=== PATIENT | female | born 1950 | race Caucasian/White ===

== ENCOUNTER 2019-02-01 09:09 | Inpatient (IN) | payer SELFPAY ==
[~2019-02-01] VITALS: Ht 165.1 cm; Wt 91.0 kg
[2019-02-01] MEDS ORDERED: AMLO2.5T4 PO (09:54)
[2019-02-01] MEDS ORDERED: METO25 PO (09:54)
[2019-02-01] MEDS ORDERED: SODIUM CHLORIDE 0.9% 1,000 ML IV ONE ×3 (10:30→13:30)
[2019-02-01 10:47] LABS: BASOPHILS % (AUTO) 0.1 % (0.0-2.0); EOSINOPHILS % (AUTO) 0.2 % (1.0-6.0); HEMATOCRIT 48.3 % (36-46); HEMOGLOBIN 16.2 g/dL (12.0-16.0); LYMPHOCYTES # (AUTO) 4.2 K/uL (1.0-4.8); LYMPHOCYTES % (AUTO) 18.8 % (22.0-44.0); MEAN CORPUSCULAR HEMOGLOBIN 29.3 pg (26.0-34.0); MEAN CORPUSCULAR HGB CONC 33.4 G/dL (31.0-37.0); MEAN CORPUSCULAR VOLUME 88 fL (80-100); MONOCYTES # (AUTO) 0.6 K/uL (0.1-1.0); MONOCYTES % (AUTO) 2.5 % (2.0-9.0); NEUTROPHILS # (AUTO) 17.7 K/uL (1.8-7.7); NEUTROPHILS % (AUTO) 78.4 % (40.0-70.0); PLATELET COUNT (AUTO) 197 K/uL (150-450); RED BLOOD CELL COUNT(AUTO) 5.51 MIL/uL (4.00-5.20); RED CELL DISTRIBUTION WIDTH 16.1 % (11.5-14.5)
[2019-02-01 11:02] LABS: ALBUMIN 1.9 g/dL (3.4-5.0); BILIRUBIN,TOTAL 0.7 mg/dL (0.1-1.0); CREATININE 1.61 mg/dL (0.60-1.30); TOTAL PROTEIN, SERUM 5.4 g/dL (6.4-8.2)
[2019-02-01 11:58] LABS: APPEARANCE,URINE CLOUDY (CLEAR); GLUCOSE, URINE (UA) NEGATIVE (NEGATIVE); KETONES,URINE TRACE mg/dL (NEGATIVE); LEUKOCYTE ESTERASE ,URINE TRACE (NEGATIVE); NITRATE,URINE NEGATIVE (NEGATIVE); OCCULT BLOOD,URINE NEGATIVE (NEGATIVE); PH,URINE 5.5 (5.0-8.0); PROTEIN,URINE SEE CONFIRM (NEGATIVE); UROBILINOGEN,URINE 0.2 mg/dL (<=1.0)
[2019-02-01] MEDS ORDERED: METO50 PO (12:00)
[2019-02-01] MEDS ORDERED: AMLO-511 PO ×2 (12:00)
[2019-02-01] MEDS ORDERED: FLUC100T PO (12:00)
[2019-02-01] MEDS ORDERED: PRED15SO12 PO (12:00)
[2019-02-01] MEDS ORDERED: [UNRECOGNIZED DRUG - OTHER] PO (12:00)
[2019-02-01] MEDS ORDERED: SPIR25 PO (12:00)
[2019-02-01] MEDS ORDERED: LACT1CAP90 PO (12:00)
[2019-02-01] MEDS ORDERED: [UNRECOGNIZED DRUG - OTHER] PO (12:00)
[2019-02-01] MEDS ORDERED: LOPE1LIQ88 PO (12:00)
[2019-02-01] MEDS ORDERED: PANT40TA25 PO (12:00)
[2019-02-01] MEDS ORDERED: PIPERACILLIN/TAZO 3.375 GM/D5W 50 ML IV ONE (12:30)
[2019-02-01 12:33] LABS: BILIRUBIN,URINE PRELIM. POSITIVE (NEGATIVE); SULFOSALICYLIC ACID,URINE 2+ (Negative)
[2019-02-01 12:34] LABS: AMORPHOUS SEDIMENT,UR Moderate /LPF (None Seen); BACTERIA,URINE None Seen /HPF (None Seen); RBC,URINE None Seen /HPF (0-2); WBC,URINE 0-2 /HPF (0-5)
[2019-02-01] MEDS ORDERED: ONDANSETRON HCL 4 MG/2 ML VIAL IVP PRN (13:30)
[2019-02-01] MEDS ORDERED: ACETAMINOPHEN 325 MG TABLET PO PRN (13:30)
[2019-02-01] MEDS: SODIUM CHLORIDE 0.9% 1,000 ML IV SCH (14:03)
[2019-02-01] MEDS: PredniSONE 10 MG TABLET PO SCH (14:30)
[2019-02-01] MEDS: ACETAMINOPHEN 325 MG TABLET PO PRN (18:01)
[2019-02-01] MEDS: HEPARIN SODIUM,PORCINE 5,000 UNITS/ML VIAL SQ SCH (21:00)
[2019-02-01] MEDS: DOCUSATE SODIUM 100 MG CAPSULE PO SCH (21:00)
[2019-02-01] MEDS: PIPERACILLIN SODIUM/TAZOBACTAM 2.25 GM in DEXTROSE 5%-WATER 50 ML IV SCH (21:23)
[2019-02-02 00:26] VITALS: BP 114/77
[2019-02-02 00:30] LABS: GLUCOMETER DEV NAME(LOC) 5S.1; GLUCOSE,POINT OF CARE 374 MG/DL (70-110)
[2019-02-02] MEDS: PIPERACILLIN SODIUM/TAZOBACTAM 2.25 GM in DEXTROSE 5%-WATER 50 ML IV SCH ×4 (01:41→20:53)
[2019-02-02 05:38] VITALS: BP 104/70
[2019-02-02] MEDS ORDERED: PNEUMOCOCCAL VACCINE POLYVALENT 0.5 ML VIAL [PPSV23] IM ONE (06:00)
[2019-02-02 06:21] LABS: CALCIUM, TOTAL 8.1 mg/dL (8.8-10.5); CREATININE 1.74 mg/dL (0.60-1.30)
[2019-02-02] MEDS: SODIUM CHLORIDE 0.9% 1,000 ML IV SCH (06:48)
[2019-02-02 07:38] VITALS: BP 115/70
[2019-02-02 07:55] LABS: BASOPHILS % (AUTO) 0.2 % (0.0-2.0); EOSINOPHILS % (AUTO) 0.2 % (1.0-6.0); HEMATOCRIT 48.5 % (36-46); HEMOGLOBIN 16.1 g/dL (12.0-16.0); LYMPHOCYTES # (AUTO) 3.6 K/uL (1.0-4.8); LYMPHOCYTES % (AUTO) 13.3 % (22.0-44.0); MEAN CORPUSCULAR HEMOGLOBIN 29.1 pg (26.0-34.0); MEAN CORPUSCULAR HGB CONC 33.1 G/dL (31.0-37.0); MEAN CORPUSCULAR VOLUME 88 fL (80-100); MONOCYTES # (AUTO) 0.8 K/uL (0.1-1.0); MONOCYTES % (AUTO) 3.1 % (2.0-9.0); NEUTROPHILS # (AUTO) 22.3 K/uL (1.8-7.7); NEUTROPHILS % (AUTO) 83.2 % (40.0-70.0); PLATELET COUNT (AUTO) 160 K/uL (150-450); RED BLOOD CELL COUNT(AUTO) 5.53 MIL/uL (4.00-5.20); RED CELL DISTRIBUTION WIDTH 16.7 % (11.5-14.5)
[2019-02-02] MEDS: PredniSONE 10 MG TABLET PO SCH (07:58)
[2019-02-02] MEDS: FAMOTIDINE 20 MG TABLET PO SCH (07:59)
[2019-02-02] MEDS: HEPARIN SODIUM,PORCINE 5,000 UNITS/ML VIAL SQ SCH ×2 (07:59→20:53)
[2019-02-02] MEDS ORDERED: DEXTROSE 50%-WATER 25 GM/50 ML SYRINGE IVP PRN (08:45)
[2019-02-02] MEDS: DOCUSATE SODIUM 100 MG CAPSULE PO SCH ×2 (09:00→21:00)
[2019-02-02 10:00] LABS: GLUCOMETER DEV NAME(LOC) 5S.1; GLUCOSE,POINT OF CARE 366 MG/DL (70-110)
[2019-02-02 11:11] VITALS: BP 112/72
[2019-02-02] MEDS: INSULIN LISPRO 100 UNITS/ML SQ PRN ×3 (12:32→21:55)
[2019-02-02 15:53] VITALS: BP 108/70
[2019-02-02] MEDS: SODIUM BICARBONATE 75 MEQ in SODIUM CHLORIDE 0.45% 1,000 ML IV SCH (17:04)
[2019-02-02] MEDS: ONDANSETRON HCL 4 MG/2 ML VIAL IVP PRN (17:04)
[2019-02-02 19:59] LABS: GLUCOMETER DEV NAME(LOC) 5N.2; GLUCOSE,POINT OF CARE 380 MG/DL (70-110)
[2019-02-02 20:20] VITALS: BP 114/74
[2019-02-02 21:35] LABS: GLUCOMETER DEV NAME(LOC) 5S.1; GLUCOSE,POINT OF CARE 369 MG/DL (70-110)
[2019-02-02 22:30] LABS: GLUCOMETER DEV NAME(LOC) 5S.2; GLUCOSE,POINT OF CARE 313 MG/DL (70-110)
[2019-02-03 00:44] VITALS: BP 122/77
[2019-02-03] MEDS: PIPERACILLIN SODIUM/TAZOBACTAM 2.25 GM in DEXTROSE 5%-WATER 50 ML IV SCH ×4 (02:55→20:56)
[2019-02-03] MEDS: SODIUM BICARBONATE 75 MEQ in SODIUM CHLORIDE 0.45% 1,000 ML IV SCH ×2 (04:02→14:25)
[2019-02-03 04:22] VITALS: BP 120/76
[2019-02-03] MEDS: INSULIN LISPRO 100 UNITS/ML SQ PRN ×4 (06:48→22:18)
[2019-02-03 06:57] LABS: HEMOGLOBIN A1C 6.8 % (4.5-6.2)
[2019-02-03 06:59] LABS: EOSINOPHILS % (AUTO) 0.4 % (1.0-6.0); HEMATOCRIT 42.1 % (36-46); HEMOGLOBIN 14.4 g/dL (12.0-16.0); LYMPHOCYTES # (AUTO) 4.8 K/uL (1.0-4.8); LYMPHOCYTES % (AUTO) 19.4 % (22.0-44.0); MEAN CORPUSCULAR HEMOGLOBIN 29.3 pg (26.0-34.0); MEAN CORPUSCULAR HGB CONC 34.1 G/dL (31.0-37.0); MEAN CORPUSCULAR VOLUME 86 fL (80-100); MONOCYTES # (AUTO) 0.7 K/uL (0.1-1.0); MONOCYTES % (AUTO) 2.9 % (2.0-9.0); NEUTROPHILS # (AUTO) 19.3 K/uL (1.8-7.7); NEUTROPHILS % (AUTO) 77.3 % (40.0-70.0); PLATELET COUNT (AUTO) 131 K/uL (150-450); RED BLOOD CELL COUNT(AUTO) 4.89 MIL/uL (4.00-5.20)
[2019-02-03] MEDS: DOCUSATE SODIUM 100 MG CAPSULE PO SCH ×2 (07:25→20:55)
[2019-02-03 07:41] LABS: BILIRUBIN,TOTAL 0.4 mg/dL (0.1-1.0); CREATININE 2.2 mg/dL (0.60-1.30); MAGNESIUM 2.3 mg/dL (1.80-2.40); PHOSPHORUS 4.6 mg/dL (2.5-4.9); TOTAL PROTEIN, SERUM 4.4 g/dL (6.4-8.2)
[2019-02-03 07:46] VITALS: BP 122/72
[2019-02-03] MEDS ORDERED: SODIUM CHLORIDE 1 GM TABLET PO ONE (08:45)
[2019-02-03] MEDS: FAMOTIDINE 20 MG TABLET PO SCH (08:57)
[2019-02-03] MEDS: PredniSONE 10 MG TABLET PO SCH (08:57)
[2019-02-03] MEDS: HEPARIN SODIUM,PORCINE 5,000 UNITS/ML VIAL SQ SCH ×3 (08:57→20:55)
[2019-02-03] MEDS: SODIUM CHLORIDE 1 GM TABLET PO SCH ×3 (08:57→18:12)
[2019-02-03 10:07] LABS: CREATININE,URINE RANDOM 179.4 mg/dL (30.0-125.0)
[2019-02-03 10:45] LABS: GLUCOMETER DEV NAME(LOC) 5S.1; GLUCOSE,POINT OF CARE 253 MG/DL (70-110)
[2019-02-03 11:21] VITALS: BP 111/76
[2019-02-03 15:49] VITALS: BP 124/77
[2019-02-03] MEDS: SODIUM BICARBONATE 650 MG TABLET PO SCH ×2 (16:21→20:55)
[2019-02-03] MEDS: ACETAMINOPHEN 325 MG TABLET PO PRN (18:19)
[2019-02-03 19:05] LABS: GLUCOMETER DEV NAME(LOC) 5S.2; GLUCOSE,POINT OF CARE 245 MG/DL (70-110)
[2019-02-03 19:05] LABS: GLUCOMETER DEV NAME(LOC) 5S.2; GLUCOSE,POINT OF CARE 247 MG/DL (70-110)
[2019-02-03 20:31] VITALS: BP 126/87
[2019-02-04 00:38] VITALS: BP 121/59
[2019-02-04] MEDS: SODIUM CHLORIDE 1 GM TABLET PO SCH ×2 (01:21→06:04)
[2019-02-04] MEDS: PIPERACILLIN SODIUM/TAZOBACTAM 2.25 GM in DEXTROSE 5%-WATER 50 ML IV SCH ×4 (01:21→20:38)
[2019-02-04] MEDS: SODIUM BICARBONATE 75 MEQ in SODIUM CHLORIDE 0.45% 1,000 ML IV SCH ×2 (01:22→10:22)
[2019-02-04 03:29] LABS: GLUCOMETER DEV NAME(LOC) 5S.1; GLUCOSE,POINT OF CARE 202 MG/DL (70-110)
[2019-02-04 04:13] VITALS: BP 121/72
[2019-02-04] MEDS: INSULIN LISPRO 100 UNITS/ML SQ PRN ×4 (06:24→21:45)
[2019-02-04 06:44] LABS: BASOPHILS % (AUTO) 0.2 % (0.0-2.0); EOSINOPHILS % (AUTO) 0.1 % (1.0-6.0); HEMATOCRIT 39.6 % (36-46); HEMOGLOBIN 13.4 g/dL (12.0-16.0); LYMPHOCYTES # (AUTO) 3.7 K/uL (1.0-4.8); LYMPHOCYTES % (AUTO) 21.1 % (22.0-44.0); MEAN CORPUSCULAR HEMOGLOBIN 29.4 pg (26.0-34.0); MEAN CORPUSCULAR HGB CONC 33.8 G/dL (31.0-37.0); MEAN CORPUSCULAR VOLUME 87 fL (80-100); MONOCYTES # (AUTO) 0.4 K/uL (0.1-1.0); MONOCYTES % (AUTO) 2.3 % (2.0-9.0); NEUTROPHILS # (AUTO) 13.5 K/uL (1.8-7.7); NEUTROPHILS % (AUTO) 76.3 % (40.0-70.0); RED BLOOD CELL COUNT(AUTO) 4.54 MIL/uL (4.00-5.20); RED CELL DISTRIBUTION WIDTH 17.1 % (11.5-14.5)
[2019-02-04 07:19] LABS: GLUCOMETER DEV NAME(LOC) 5S.1; GLUCOSE,POINT OF CARE 180 MG/DL (70-110)
[2019-02-04 08:01] LABS: ALBUMIN 1.2 g/dL (3.4-5.0); BILIRUBIN,TOTAL 0.4 mg/dL (0.1-1.0); CALCIUM, TOTAL 7.7 mg/dL (8.8-10.5); CREATININE 1.66 mg/dL (0.60-1.30); POTASSIUM 4.4 mmol/L (3.5-5.1)
[2019-02-04 08:31] VITALS: BP 117/74
[2019-02-04] MEDS: HEPARIN SODIUM,PORCINE 5,000 UNITS/ML VIAL SQ SCH ×2 (09:00→20:38)
[2019-02-04] MEDS: DOCUSATE SODIUM 100 MG CAPSULE PO SCH ×2 (09:00→20:27)
[2019-02-04 09:50] LABS: PLATELET COUNT (AUTO) 112 K/uL (150-450)
[2019-02-04] MEDS: PredniSONE 10 MG TABLET PO SCH (09:53)
[2019-02-04] MEDS: FAMOTIDINE 20 MG TABLET PO SCH (09:53)
[2019-02-04] MEDS: SODIUM BICARBONATE 650 MG TABLET PO SCH ×3 (09:53→20:38)
[2019-02-04 11:52] LABS: SODIUM,URINE RANDOM 15 mmol/l (20-110)
[2019-02-04 11:56] VITALS: BP 128/75
[2019-02-04 12:03] LABS: OSMOLALITY,URINE 557 mOS/kg (50-1200)
[2019-02-04 14:49] LABS: GLUCOMETER DEV NAME(LOC) 5S.1; GLUCOSE,POINT OF CARE 200 MG/DL (70-110)
[2019-02-04 15:28] LABS: CREATININE 1.41 mg/dL (0.60-1.30); POTASSIUM 4.3 mmol/L (3.5-5.1)
[2019-02-04 16:06] VITALS: BP 122/81
[2019-02-04 20:04] VITALS: BP 144/84
[2019-02-04 20:10] LABS: GLUCOMETER DEV NAME(LOC) 5S.2; GLUCOSE,POINT OF CARE 226 MG/DL (70-110)
[2019-02-04 22:15] LABS: GLUCOMETER DEV NAME(LOC) 5S.1; GLUCOSE,POINT OF CARE 229 MG/DL (70-110)
[2019-02-05 00:12] VITALS: BP 139/83
[2019-02-05] MEDS: PIPERACILLIN SODIUM/TAZOBACTAM 2.25 GM in DEXTROSE 5%-WATER 50 ML IV SCH ×2 (02:54→08:37)
[2019-02-05] MEDS: SODIUM BICARBONATE 75 MEQ in SODIUM CHLORIDE 0.45% 1,000 ML IV SCH (04:10)
[2019-02-05 04:54] VITALS: BP 142/88
[2019-02-05] MEDS: INSULIN LISPRO 100 UNITS/ML SQ PRN ×4 (06:18→20:34)
[2019-02-05 07:09] LABS: CALCIUM, TOTAL 7.9 mg/dL (8.8-10.5); CREATININE 1.12 mg/dL (0.60-1.30); POTASSIUM 3.9 mmol/L (3.5-5.1)
[2019-02-05 07:18] LABS: HEMATOCRIT 38.5 % (36-46); HEMOGLOBIN 13.6 g/dL (12.0-16.0); MEAN CORPUSCULAR HEMOGLOBIN 30.1 pg (26.0-34.0); MEAN CORPUSCULAR HGB CONC 35.3 G/dL (31.0-37.0); MEAN CORPUSCULAR VOLUME 85 fL (80-100); PLATELET COUNT (AUTO) 73 K/uL (150-450); RED BLOOD CELL COUNT(AUTO) 4.51 MIL/uL (4.00-5.20); RED CELL DISTRIBUTION WIDTH 16.6 % (11.5-14.5)
[2019-02-05 08:10] VITALS: BP 127/83
[2019-02-05] MEDS: HEPARIN SODIUM,PORCINE 5,000 UNITS/ML VIAL SQ SCH ×2 (08:31→20:14)
[2019-02-05] MEDS: DOCUSATE SODIUM 100 MG CAPSULE PO SCH ×2 (08:35→20:32)
[2019-02-05] MEDS: PredniSONE 10 MG TABLET PO SCH (08:37)
[2019-02-05] MEDS: FAMOTIDINE 20 MG TABLET PO SCH (08:37)
[2019-02-05] MEDS: SODIUM BICARBONATE 650 MG TABLET PO SCH ×3 (08:37→20:32)
[2019-02-05 09:01] LABS: BAND NEUTROPHILS % (MANUAL) 3 % (0-5); LYMPHOCYTES % (MANUAL) 25 % (22-44); MONOCYTES % (MANUAL) 2 % (2-9); SEGMENTED NEUTROPHILS % 70 % (40-70)
[2019-02-05] MEDS: RINGERS SOLUTION,LACTATED 1,000 ML IV SCH (11:04)
[2019-02-05 11:36] VITALS: BP 146/75
[2019-02-05 13:40] LABS: GLUCOMETER DEV NAME(LOC) 5S.1; GLUCOSE,POINT OF CARE 174 MG/DL (70-110)
[2019-02-05 13:41] LABS: GLUCOMETER DEV NAME(LOC) 5S.2; GLUCOSE,POINT OF CARE 226 MG/DL (70-110)
[2019-02-05] MEDS: PIPERACILLIN/TAZO 3.375 GM/D5W 50 ML IV SCH ×2 (15:53→21:50)
[2019-02-05 16:29] VITALS: BP 121/84
[2019-02-05 17:15] LABS: GLUCOMETER DEV NAME(LOC) 5S.1; GLUCOSE,POINT OF CARE 259 MG/DL (70-110)
[2019-02-05] MEDS: ONDANSETRON HCL 4 MG/2 ML VIAL IVP PRN (18:26)
[2019-02-05 18:31] LABS: CALCIUM, TOTAL 7.9 mg/dL (8.8-10.5); CREATININE 1.01 mg/dL (0.60-1.30); POTASSIUM 4.1 mmol/L (3.5-5.1)
[2019-02-05 20:10] VITALS: BP 120/84
[2019-02-05] MEDS: ACETAMINOPHEN 325 MG TABLET PO PRN (20:32)
[2019-02-05 21:04] LABS: SODIUM,URINE RANDOM 17 mmol/l (20-110)
[2019-02-05 21:06] LABS: OSMOLALITY,URINE 467 mOS/kg (50-1200)
[2019-02-06 00:18] VITALS: BP 150/78
[2019-02-06] MEDS: RINGERS SOLUTION,LACTATED 1,000 ML IV SCH ×3 (00:24→22:30)
[2019-02-06 02:39] LABS: GLUCOMETER DEV NAME(LOC) 5S.1; GLUCOSE,POINT OF CARE 256 MG/DL (70-110)
[2019-02-06] MEDS: PIPERACILLIN/TAZO 3.375 GM/D5W 50 ML IV SCH ×4 (03:53→21:23)
[2019-02-06 05:34] VITALS: BP 148/83
[2019-02-06] MEDS: INSULIN LISPRO 100 UNITS/ML SQ PRN ×4 (05:41→20:14)
[2019-02-06 05:44] LABS: GLUCOMETER DEV NAME(LOC) 5S.1; GLUCOSE,POINT OF CARE 156 MG/DL (70-110)
[2019-02-06 06:40] LABS: ANION GAP 6 mmol/L (8-16); CARBON DIOXIDE 28 mmol/L (22-29); CHLORIDE 95 mmol/L (98-107); CREATININE 0.91 mg/dL (0.60-1.30); GLOMERULAR FILTR. RATE CALC > 60 mL/min (>60); GLUCOSE,RANDOM 152 mg/dL (70-110); POTASSIUM 3.7 mmol/L (3.5-5.1); SODIUM SERUM 129 mmol/L (136-145); UREA NITROGEN, BLOOD 26 mg/dL (7-18)
[2019-02-06] MEDS: DOCUSATE SODIUM 100 MG CAPSULE PO SCH ×2 (07:41→20:08)
[2019-02-06] MEDS: HEPARIN SODIUM,PORCINE 5,000 UNITS/ML VIAL SQ SCH ×2 (07:42→20:07)
[2019-02-06 08:20] VITALS: BP 136/82
[2019-02-06] MEDS: FAMOTIDINE 20 MG TABLET PO SCH (09:25)
[2019-02-06] MEDS: PredniSONE 10 MG TABLET PO SCH (09:25)
[2019-02-06] MEDS: SODIUM BICARBONATE 650 MG TABLET PO SCH ×2 (09:26→20:07)
[2019-02-06] MEDS: ACETAMINOPHEN 325 MG TABLET PO PRN (10:10)
[2019-02-06] MEDS: SODIUM CHLORIDE 1 GM TABLET PO SCH ×2 (11:36→20:07)
[2019-02-06 13:13] VITALS: BP 137/76
[2019-02-06 16:20] VITALS: BP 144/92
[2019-02-06 17:35] LABS: GLUCOMETER DEV NAME(LOC) 5S.2; GLUCOSE,POINT OF CARE 212 MG/DL (70-110)
[2019-02-06 17:36] LABS: GLUCOMETER DEV NAME(LOC) 5S.2; GLUCOSE,POINT OF CARE 225 MG/DL (70-110)
[2019-02-06 20:52] VITALS: BP 141/86
[2019-02-07 00:15] LABS: GLUCOMETER DEV NAME(LOC) 5S.2; GLUCOSE,POINT OF CARE 221 MG/DL (70-110)
[2019-02-07 00:46] VITALS: BP 133/81
[2019-02-07] MEDS: PIPERACILLIN/TAZO 3.375 GM/D5W 50 ML IV SCH ×2 (03:36→10:28)
[2019-02-07 04:12] VITALS: BP 147/81
[2019-02-07 05:41] LABS: ANION GAP 7 mmol/L (8-16); CALCIUM, TOTAL 7.9 mg/dL (8.8-10.5); CARBON DIOXIDE 30 mmol/L (22-29); CHLORIDE 95 mmol/L (98-107); CREATININE 0.91 mg/dL (0.60-1.30); GLOMERULAR FILTR. RATE CALC > 60 mL/min (>60); GLUCOSE,RANDOM 133 mg/dL (70-110); POTASSIUM 3.8 mmol/L (3.5-5.1); SODIUM SERUM 132 mmol/L (136-145); UREA NITROGEN, BLOOD 19 mg/dL (7-18)
[2019-02-07 05:42] LABS: BASOPHILS % (AUTO) 0.1 % (0.0-2.0); EOSINOPHILS % (AUTO) 0.6 % (1.0-6.0); HEMATOCRIT 37.4 % (36-46); HEMOGLOBIN 12.7 g/dL (12.0-16.0); LYMPHOCYTES # (AUTO) 2.7 K/uL (1.0-4.8); LYMPHOCYTES % (AUTO) 22.4 % (22.0-44.0); MEAN CORPUSCULAR HEMOGLOBIN 29.4 pg (26.0-34.0); MEAN CORPUSCULAR HGB CONC 33.9 G/dL (31.0-37.0); MEAN CORPUSCULAR VOLUME 87 fL (80-100); MONOCYTES # (AUTO) 0.3 K/uL (0.1-1.0); MONOCYTES % (AUTO) 2.7 % (2.0-9.0); NEUTROPHILS % (AUTO) 74.2 % (40.0-70.0); RED BLOOD CELL COUNT(AUTO) 4.31 MIL/uL (4.00-5.20); RED CELL DISTRIBUTION WIDTH 16.4 % (11.5-14.5)
[2019-02-07 07:43] LABS: PLATELET COUNT (AUTO) 85 K/uL (150-450)
[2019-02-07 07:49] LABS: GLUCOMETER DEV NAME(LOC) 5S.2; GLUCOSE,POINT OF CARE 136 MG/DL (70-110)
[2019-02-07 07:59] VITALS: BP 143/73
[2019-02-07] MEDS: SODIUM CHLORIDE 1 GM TABLET PO SCH (08:15)
[2019-02-07] MEDS: SODIUM BICARBONATE 650 MG TABLET PO SCH (08:15)
[2019-02-07] MEDS: PredniSONE 10 MG TABLET PO SCH (08:15)
[2019-02-07] MEDS: FAMOTIDINE 20 MG TABLET PO SCH (08:15)
[2019-02-07] MEDS: HEPARIN SODIUM,PORCINE 5,000 UNITS/ML VIAL SQ SCH (08:17)
[2019-02-07] MEDS: DOCUSATE SODIUM 100 MG CAPSULE PO SCH (08:17)
[2019-02-07] MEDS ORDERED: LEVO500 PO (10:37)
[2019-02-07] MEDS ORDERED: METR500 PO (10:37)
[2019-02-07] MEDS: INSULIN LISPRO 100 UNITS/ML SQ PRN (12:11)
[2019-02-07 12:37] VITALS: BP 139/75
[2019-02-07 19:28] LABS: GLUCOMETER DEV NAME(LOC) 5S.2; GLUCOSE,POINT OF CARE 217 MG/DL (70-110)
== END 2019-02-07 14:40 | disposition home or self-care (01) | DRG 682 ==
LOC: EMS 09:13 → AHU 16:50 → 5S 22:45
PROVIDERS: ADMIT Internal Medicine; ATTEND Internal Medicine
DX: N17.9 Acute kidney failure, unspecified (principal); G93.41 Metabolic encephalopathy; E43 Unspecified severe protein-calorie malnutrition; E87.1 Hypo-osmolality and hyponatremia; K57.92 Diverticulitis of intestine, part unspecified, without perforation or abscess without bleeding; E87.2 Acidosis; K52.9 Noninfective gastroenteritis and colitis, unspecified; I10 Essential (primary) hypertension; K80.20 Calculus of gallbladder without cholecystitis without obstruction; M35.00 Sjogren syndrome, unspecified; E11.9 Type 2 diabetes mellitus without complications; E86.0 Dehydration; M19.90 Unspecified osteoarthritis, unspecified site; R53.81 Other malaise; R62.7 Adult failure to thrive; Z79.899 Other long term (current) drug therapy; Z68.33 Body mass index [BMI] 33.0-33.9, adult
CPT/HCPCS: 51701; 72040; 74176; 76770; 82436; 82570; 83036; 83735; 83935; 84100; 84133; 84295; 84300; 84540; 89055; 93005; 97162; 97530; G0378; J1644; J2405; J2543; J3490; J7030; J7060; J7120